=== PATIENT | female | born 1985 | race American Indian/Alaskan Native ===

== ENCOUNTER 2023-03-07 19:47 | Emergency (ER) | payer OTHER ==
[~2023-03-07] VITALS: Ht 165.1 cm; Wt 83.1 kg
[2023-03-07] MEDS ORDERED: IBUPROFEN 800 MG TAB PO ONE (21:00)
[2023-03-07 21:08] VITALS: BP 141/92; PULSE 81; RESP 16; TEMP 97.7; O2SAT 98
[2023-03-07] MEDS ORDERED: AZIT4SOL EACH EAR (21:16)
[2023-03-07] MEDS ORDERED: IBUP-1454 PO (21:16)
[2023-03-07] MEDS ORDERED: AUG875T PO (21:16)
[2023-03-07] MEDS ORDERED: FLUC200T PO (21:20)
== END 2023-03-07 21:29 | disposition home or self-care (01) ==
LOC: ER 19:47
DX: H66.93 Otitis media, unspecified, bilateral (principal); H60.93 Unspecified otitis externa, bilateral; J02.9 Acute pharyngitis, unspecified

== ENCOUNTER 2024-06-06 19:06 | Emergency (ER) | payer OTHER ==
[~2024-06-06] VITALS: Ht 165.1 cm; Wt 86.0 kg
[~2024-06-06 19:06] MED LIST: AUG875T PO; AZIT4SOL EACH EAR; COR10OTS OT; FLUC200T PO; IBUP-1454 PO; LOSA50TA30 PO
[2024-06-06] MEDS: TRIAMCINOLONE 40MG/ML 1ML VIAL IM ONE (19:45)
[2024-06-06 19:47] VITALS: BP 141/87; PULSE 83; RESP 17; TEMP 97.9; O2SAT 98
--- NOTE | 2024-06-06 19:49 | ED.PDOC ---
History of Present Illness(SKN HPI Comments This is a 39-year-old female patient presents to the ED chief complaint sebaceous cyst. Patient states she follow up with Dermatology and was recommended to have sebaceous cyst removed under general anesthesia. However patient does not feel comfortable with general anesthesia in his procedure. He is requesting a trial of steroid injection to decrease the swelling. She denies fevers, chills or lesions. Chief Complaint: Abscess Time Seen by MD: 19:23 Primary Care Provider: MIKAEL History of Present Illness: Nurses Notes, Medications, Allergies Allergies: Coded Allergies: NO KNOWN ALLERGIES (Unverified , 03/07/23) Home Meds Active Scripts Losartan Potassium & Hydrochlo (Losartan Potassium/Hydroc) 1 Tab Tab, 1 TAB PO DAILY for 90 Days, #90 TAB 1 Refill Losartan/hydrochlorothiazide 50mg/12.5MG Take 1 tab once daily. Prov:LINDA DELEON [facility] 03/12/24 Ibuprofen (Ibuprofen) 600 Mg Tab, 1 TAB PO TID PRN, #90 TAB Prov:JAK BAUTISTA [facility] 12/22/23 Jkjzsnyw-Zhvhpzurv-Cw (Otic) (Cortisporin Otic Soln) [address], 3 DROP OT TID for 7 Days, #10 ML Prov:JAK BAUTISTA [facility] 12/22/23 Fluconazole (Diflucan) 200 Mg Tab, 1 TAB PO DAILY, #2 TAB Patient to take tablet 1 on day 1 and tablet to 1 day 3. Prov:CELIO BAILEY [facility] 03/07/23 Azithromycin (Ophth) (Azasite) 1 % Ivette, 3 DROP EACH EAR BID for 7 Days, #2.5 ML 2 Refills Prov:CELIO BAILEY [facility] 03/07/23 Amoxicillin & Pot Clavulanate (AUGMENTIN TABLET) 875 Mg Tb, 875 MG PO BID for 7 Days, #14 TAB Prov:CELIO BAILEY [facility] 03/07/23 Ibuprofen (Ibuprofen) 600 Mg Tab, 1 TAB PO Q6HP PRN, #30 TAB Prov:CELIO BAILEY [facility] 03/07/23 Information Source: Patient Mode of Arrival: Ambulatory Severity: Mild Past Medical History PAST MEDICAL HISTORY: Denies Surgical History: Denies all surgeries [employer] History: No Pertinent [employer] History Family History Family History: Reviewed,noncontributory to illness, No family hx of Cancer, No family hx of DM, No family hx of Heart kal, No family hx of HTN, No family hx ofKidney kal, No family hx of Liver kal, No family hx of Lung kal, No family hx of Stroke Social History Smoker: Non-Smoker Alcohol: Denies ETOH Use Drugs: Denies Drug Use Constitutional: denies: chills, diaphoresis, fatigue, fever, malaise, sweats, weakness, others EENTM: denies: blurred vision, double vision, ear bleeding, ear discharge, ear drainage, ear pain, ear ringing, eye pain, eye redness, hearing loss, mouth pain, mouth swelling, nasal discharge, nose bleeding, nose congestion, nose pain, photophobia, tearing, throat pain, throat swelling, voice changes, others Respiratory: denies: cough, hemoptysis, orthopnea, SOB at rest, shortness of breath, SOB with excertion, stridor, wheezing, others Cardiovascular: denies: chest pain, dizzy spells, diaphoresis, Dyspnea on exertion, edema, irregular heart beat, left arm pain, lightheadedness, palpitations, PND, syncope, others Gastrointestinal: denies: abdomen distended, abdominal pain, blood streaked bowels, constipated, diarrhea, dysphagia, difficulty swallowing, hematemesis, m allyson, nausea, poor appetite, poor fluid intake, rectal bleeding, rectal pain, vomiting, others Genitourinary: denies: abnormal vagina bleeding, burning, dyspareunia, dysuria, flank pain, frequency, hematuria, incontinence, pain, , vagina discharge, urgency, others Neurological: denies: dizziness, fainting, headache, left sided numbness, left sided weakness, numbness, paresthesia, pre-existing deficit, right sided numbness, right sided weakness, seizure, speech problems, tingling, tremors, weakness, others Musculoskeletal: reports: others (Sebaceous cyst medial to left eyebrow); denies: back pain, gout, joint pain, joint swelling, muscle pain, muscle stiffness, neck pain Integumetry: denies: bruises, change in color, change in hair/nails, dryness, laceration, lesions, lumps, rash, wounds, others Allergic/Immunocompromised: denies: Difficulty Healing, Frequent Infections, H veronica, Itching, others Hematologic/Lymphatic: denies: anemia, blood clots, easy bleeding, easy bruising, swollen glands, others Endocrine: denies: excessive hunger, excessive sweating, excessive thirst, excessive urination, flushing, intolerance to cold, intolerance to heat, unexplained weight gain, unexplained weight loss, others Psychiatric: denies: anxiety, bipolar disorder, depression, hopeless, panic disorder, schizophrenia, sleepless, suicidal, others Physical Exam General Appearance: No Apparent Distress, Normal HEENT: Pharynx Normal Neck: Full Range of Motion, Non-Tender Respiratory: Lungs Clear, No Respiratory Distress, Normal Breath Sounds Cardiovascular: No Murmur, Normal Peripheral Pulses, Regular Rate/Rhythm Breast Exam: Deferred Gastrointestinal: Non Tender, Soft Genitalia: Deferred Pelvic: Deferred Rectal: Deferred Extremities: Normal range of motion Musculoskeletal : Apperance: Normal Neurologic: Alert, service delivery supervisor II-XII nml as Tested, No Motor Deficits, Normal Affect, Normal Mood, No Sensory Deficits Cerebellar Function: Normal Reflexes: Normal Skin: Dry, Normal Color, Warm, Other (Approximate dime size sebaceous cyst medial to left eyebrow) Lymphatic: No Adenopathy Was a procedure done? Was a procedure done?: Yes Sedation Sedation?: No Informed consent obtained: Yes Incision and Drainage Incision and Drainage: Other (Sebaceous cyst) Location Left eyebrow Anesthetic: Other (Injected with 0.1 mL of Kenalog) Preparation: Betadine, Saline Incision and Wound: Blood Informed consent obtained: Yes Risks/benefits/alt described: Yes Notes Patient tolerated procedure well with little to no blood loss Differential Diagnosis (INTG) Abscess: Abscess X-Ray, Labs, Meds, VS Vital Signs Date Time Temp Pulse Resp B/P (MAP) Pulse Ox O2 Delivery O2 Flow Rate FiO2 06/06/24 19:16 97.9 83 17 141/87 (105) 98 X-Ray, Labs, Meds, VS Comment See procedure note. Advised to follow up with surgeon if no improvement consider complete removal of sebaceous cyst if no improvement. ER precautions for return given. Patient agrees with discharge plan of care. Time of 1ST Reevaluation: 19:45 Reevaluation 1ST: Unchanged Patient Education/Counseling: Diagnosis, Treatment, Prognosis, Need For Follow Up Family Education/Counseling: No Family Present Departure 1 Departure Time of Disposition: 19:45 Impression: Primary Impression: Sebaceous cyst of left eyelid Disposition: 01 HOME / SELF CARE / HOMELESS Condition: Stable Discharged With: Self Critical Care Note Critical Care Time?: No Stability Stability form required: LINDA Bedolla Jun 06, 2024 19:49
== END 2024-06-06 19:49 | disposition home or self-care (01) ==
LOC: ER 19:06
DX: L72.3 Sebaceous cyst (principal); Z79.899 Other long term (current) drug therapy
CPT/HCPCS: 10060; 99282; J3301